=== PATIENT | female | born 1980 | race Caucasian/White ===

== ENCOUNTER 2021-01-23 10:00 | Outpatient (RCR) | payer OTHER, SELFPAY ==
[2021-01-01 12:24] VITALS: BMI 16.8
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
--- NOTE | 2021-01-01 12:52 | PC.ADMIT ---
Patient is a 40 year old female who was advised to attend the PHP program by her therapist d/t increased in depression with passive SI-denied plan or intent, anxiety, and PTSD sxs. Patient reports that she lost her Job in September d/t Covid and her unemployment runs out in 6 weeks and is feeling overwhelmed in addition to finding it difficult looking for a job d/t symptoms. Patient reports feeling isolated and has no structure and is trying to avoid inpatient hospitalization. Patient is underweight and reports weight loss d/t anxiety and depression thus experiencing a low desire to eat. Patient presents with depressed mood and anxious affect. Wants to attend PHP as she wants to learn coping skills as she does not want to go into the hospital, stated it was not helpful last time. Patient reports passive SI, denied plan or intent. Gave verbal permission to email her a copy of her safety plan. In addition, patient has the crisis number if needed. Medications reconciled with patient and patient's pharmacy.
--- NOTE | 2021-01-01 14:36 | PC.NURSE ---
case opened in treatment team
--- NOTE | 2021-01-07 13:38 | HO.PHPPROGNO ---
Subjective Subjective Date of Service: 01/07/21 Reason For Visit: depression Interim History: She has been taking Cymbalta 60 mg for the last 3 days. She has not noticed any major changes on her mood but no side effects. She reports that she is attending groups. Medication Compliance: Yes Side effects from medications: No Attending Groups: Yes Review of Systems Review of Systems Yes all other systems are reviewed and are negative Mental Status Exam Mental Status Exam Patient Appearance: Well Grooomed Patient Orientation: Person, Place, Time and Situation Level of Consciousness: Awake Patient Behavior: Appropriate Mood Description: Calm Affect Description: Constricted Patient Cognition Impaired: No Ability to Follow Directions: Good Speech Pattern: Clear Memory Description: Intact Hallucinations: None Delusions: Not Present Thought Process: Goal Oriented Thought Content: positive for Intact Depressive Symptoms: Changes in Appetite Judgement: Fair Diagnostics Vital Signs (24Hr): Body Mass Index 16.8 Assessment & Plan Assessment & Plan (1) Mood disorder: Status: Acute Code(s): F39 - Unspecified mood [affective] disorder Assessment and Plan: Keep same treatment Certification I certify that partial hospital treatment is medically necessary due to the symptoms and problems resulting from the patient's mental illness and the failure to treat the patient at the partial hospital level of care would likely result in the patient requiring inpatient psychiatric care which could not be prevented at a less intensive level of care. Greater than 50% of the session was spent on counseling and/or coordination of care Discharge Plan Discharge Attending provider: Brian Arce Medications: New duloxetine [Cymbalta] 60 mg capsule,delayed release(DR/EC) 60 mg PO BID Qty: 60 RF: 0 Discontinued duloxetine [Cymbalta] 20 mg Capsule,Delayed Release(Dr/Ec) 40 mg PO DAILY RF: 0 duloxetine [Cymbalta] 60 mg Capsule,Delayed Release(Dr/Ec) 60 mg PO DAILY RF: 0 No Action multivitamin Tablet 1 tab PO DAILY RF: 0 lamotrigine 200 mg Tablet 200 mg PO BID RF: 0 trazodone 50 mg Tablet 50 - 100 mg PO BEDTIME PRN (Reason: Insomnia) RF: 0 propranolol 60 mg Tablet 30 mg PO BID PRN (Reason: Anxiety) RF: 0 lorazepam 0.5 mg Tablet 0.5 mg PO DAILY PRN (Reason: Anxiety) RF: 0 dextroamphetamine-amphetamine [Adderall] 15 mg Tablet 15 mg PO DAILY@1400 RF: 0 dextroamphetamine-amphetamine [Adderall XR] 30 mg Capsule,Extended Release 24hr 30 mg PO DAILY RF: 0 gabapentin 100 mg Tablet 200 mg PO BID RF: 0 Latuda 40 mg Tablet 40 mg PO DAILY@1800 RF: 0 Telehealth Telehealth Location of provider rendering services: practice address Location of patient: address on file Patient Identification confirmed using: Name, : No Telehealth method: video Patient verbally consented to treatment: Yes Patient verbally consented to billing insurance company: Yes Patient informed of any privacy concerns related to visit: No Time spent with patient (mins): 15
--- NOTE | 2021-01-14 14:11 | PC.NURSE ---
I spoke with the client about her progress in PHP and discharge plans. She will be dropping down to half days and will be ending TuesdayJanuary 23
--- NOTE | 2021-01-15 14:22 | HO.PHPPROGNO ---
Subjective Subjective Date of Service: 01/15/21 Reason For Visit: depression Interim History: The patient reported that she has forgotten a few days to take Cymbalta BID. So far, no side effects. Her mood remains stable, chronically dysphoric. Medication Compliance: Intermittent Side effects from medications: No Attending Groups: Yes Review of Systems Review of Systems Yes all other systems are reviewed and are negative Mental Status Exam Mental Status Exam Patient Appearance: Well Grooomed Patient Orientation: Person, Place, Time and Situation Level of Consciousness: Awake and Appropriate Patient Behavior: Appropriate Mood Description: Calm and Appropriate Affect Description: Anxious and Labile Patient Cognition Impaired: Yes Ability to Follow Directions: Good Speech Pattern: Clear Memory Description: Intact Hallucinations: None Delusions: Not Present Thought Process: Goal Oriented Thought Content: positive for Intact Depressive Symptoms: Increased Anxiety and Hopelessness Judgement: Fair Diagnostics Vital Signs (24Hr): Body Mass Index 16.8 Assessment & Plan Assessment & Plan (1) Mood disorder: Status: Acute Code(s): F39 - Unspecified mood [affective] disorder Assessment and Plan: Keep same treatment (2) Attention deficit disorder: Status: Acute Code(s): F98.8 - Other specified behavioral and emotional disorders with onset usually occurring in childhood and adolescence Certification I certify that partial hospital treatment is medically necessary due to the symptoms and problems resulting from the patient's mental illness and the failure to treat the patient at the partial hospital level of care would likely result in the patient requiring inpatient psychiatric care which could not be prevented at a less intensive level of care. Greater than 50% of the session was spent on counseling and/or coordination of care Discharge Plan Discharge Attending provider: Brian Arce Medications: New duloxetine [Cymbalta] 60 mg capsule,delayed release(DR/EC) 60 mg PO BID Qty: 60 RF: 0 Discontinued duloxetine [Cymbalta] 20 mg Capsule,Delayed Release(Dr/Ec) 40 mg PO DAILY RF: 0 duloxetine [Cymbalta] 60 mg Capsule,Delayed Release(Dr/Ec) 60 mg PO DAILY RF: 0 No Action multivitamin Tablet 1 tab PO DAILY RF: 0 lamotrigine 200 mg Tablet 200 mg PO BID RF: 0 trazodone 50 mg Tablet 50 - 100 mg PO BEDTIME PRN (Reason: Insomnia) RF: 0 propranolol 60 mg Tablet 30 mg PO BID PRN (Reason: Anxiety) RF: 0 lorazepam 0.5 mg Tablet 0.5 mg PO DAILY PRN (Reason: Anxiety) RF: 0 dextroamphetamine-amphetamine [Adderall] 15 mg Tablet 15 mg PO DAILY@1400 RF: 0 dextroamphetamine-amphetamine [Adderall XR] 30 mg Capsule,Extended Release 24hr 30 mg PO DAILY RF: 0 gabapentin 100 mg Tablet 200 mg PO BID RF: 0 Latuda 60 mg Tablet 60 mg PO QPM RF: 0 Telehealth Telehealth Location of provider rendering services: practice address Location of patient: address on file Patient Identification confirmed using: Name, : No Telehealth method: video Patient verbally consented to treatment: Yes Patient verbally consented to billing insurance company: Yes Patient informed of any privacy concerns related to visit: No Time spent with patient (mins): 15
--- NOTE | 2021-01-21 13:17 | HO.PHPPROGNO ---
Subjective Subjective Date of Service: 01/21/21 Reason For Visit: depression Interim History: The patient has reported that she couldn't sleep well for the last days. Her mood remains chronically dysphoric but safe. Medication Compliance: Yes Side effects from medications: No Attending Groups: Yes Review of Systems Acute medical concerns: No Medical Review of Systems: changed Mental Status Exam Mental Status Exam Patient Appearance: Well Grooomed Patient Orientation: Person, Place, Time and Situation Level of Consciousness: Awake and Appropriate Patient Behavior: Appropriate and Cooperative Mood Description: Calm and Withdrawn Affect Description: Constricted Patient Cognition Impaired: No Ability to Follow Directions: Good Speech Pattern: Clear Memory Description: Intact Hallucinations: None Delusions: Not Present Thought Process: Goal Oriented Thought Content: positive for Intact Judgement: Fair Diagnostics Vital Signs (24Hr): Body Mass Index 16.8 Assessment & Plan Assessment & Plan (1) Mood disorder: Status: Acute Code(s): F39 - Unspecified mood [affective] disorder Assessment and Plan: The patient is an adult female with dysphoria and mood lability for several years. She has been referred to [facility] from her therapist due to exacerbation of depression. We increased Cymbalta up to 60 mg po bid to target depression. Plan: 1. Since her sleep is worse, she could increase Trazodone PRN up to 200 mg/hs. 2. Rest the same (2) Attention deficit disorder: Status: Acute Code(s): F98.8 - Other specified behavioral and emotional disorders with onset usually occurring in childhood and adolescence Assessment and Plan: Keep stimulants as prescribed. Certification I certify that partial hospital treatment is medically necessary due to the symptoms and problems resulting from the patient's mental illness and the failure to treat the patient at the partial hospital level of care would likely result in the patient requiring inpatient psychiatric care which could not be prevented at a less intensive level of care. Greater than 50% of the session was spent on counseling and/or coordination of care Discharge Plan Discharge Attending provider: Brian Arce Medications: New duloxetine [Cymbalta] 60 mg capsule,delayed release(DR/EC) 60 mg PO BID Qty: 60 RF: 0 trazodone 100 mg tablet 100 mg PO BEDTIME PRN (Reason: insomnia) Qty: 7 RF: 0 Discontinued trazodone 50 mg Tablet 50 - 100 mg PO BEDTIME PRN (Reason: Insomnia) RF: 0 duloxetine [Cymbalta] 20 mg Capsule,Delayed Release(Dr/Ec) 40 mg PO DAILY RF: 0 duloxetine [Cymbalta] 60 mg Capsule,Delayed Release(Dr/Ec) 60 mg PO DAILY RF: 0 No Action multivitamin Tablet 1 tab PO DAILY RF: 0 lamotrigine 200 mg Tablet 200 mg PO BID RF: 0 propranolol 60 mg Tablet 30 mg PO BID PRN (Reason: Anxiety) RF: 0 lorazepam 0.5 mg Tablet 0.5 mg PO DAILY PRN (Reason: Anxiety) RF: 0 dextroamphetamine-amphetamine [Adderall] 15 mg Tablet 15 mg PO DAILY@1400 RF: 0 dextroamphetamine-amphetamine [Adderall XR] 30 mg Capsule,Extended Release 24hr 30 mg PO DAILY RF: 0 gabapentin 100 mg Tablet 200 mg PO BID RF: 0 Latuda 60 mg Tablet 60 mg PO QPM RF: 0 Telehealth Telehealth Location of provider rendering services: practice address Location of patient: address on file Patient Identification confirmed using: Name, : Yes Telehealth method: video Patient verbally consented to treatment: Yes Patient verbally consented to billing insurance company: Yes Patient informed of any privacy concerns related to visit: No Time spent with patient (mins): 15
--- NOTE | 2021-01-22 15:33 | PC.NURSE ---
called an left a message for Carly [facility] re clients dc from PHP
--- NOTE | 2021-01-23 08:35 | PC.NURSE ---
Reviewed patient's medication list. Patient states that she sometimes takes an extra Ativan if needed and another Gabapentin as needed per her prescribers instructions. Patient appears to understand her medications and mediation education provided.
== END 2021-01-26 08:29 | disposition home or self-care (01) ==
LOC: HO.PHPA 10:00
PROVIDERS: Visit Provider Psychiatry & Neurology Psychiatry
DX: F39 Unspecified mood [affective] disorder (principal); F98.8 Other specified behavioral and emotional disorders with onset usually occurring in childhood and adolescence; Z79.899 Other long term (current) drug therapy
CPT/HCPCS: 90791; 90853